=== PATIENT | male | born 1990 | race African-American/Black ===

== ENCOUNTER 2021-12-01 16:22 | Emergency (ER) | payer SELFPAY ==
[~2021-12-01] VITALS: Ht 170.2 cm; Wt 79.4 kg
[2021-12-01 17:35] VITALS: BP 112/68
[2021-12-01] MEDS ORDERED: NAPR500T31 PO (17:58)
[2021-12-01] MEDS ORDERED: CEPH500C PO (17:58)
[2021-12-01] MEDS ORDERED: TETANUS-DIPTH-ACEL PERTUSSIS 0.5ML SYR Tdap IM ONE (18:15)
== END 2021-12-01 18:31 | disposition home or self-care (01) ==
LOC: ER 16:22
DX: S41.112A Laceration without foreign body of left upper arm, initial encounter (principal); Y08.89XA Assault by other specified means, initial encounter; Y93.89 Activity, other specified; Y92.89 Other specified places as the place of occurrence of the external cause; Y99.8 Other external cause status
CPT/HCPCS: 12001; 90471; 90715

== ENCOUNTER 2021-12-08 08:08 | Emergency (ER) | payer OTHER ==
[~2021-12-08] VITALS: Ht 170.2 cm; Wt 77.1 kg
[~2021-12-08 08:08] MED LIST: CEPH500C PO; NAPR500T31 PO
[2021-12-08 08:09] VITALS: BP 126/81
== END 2021-12-08 09:00 | disposition home or self-care (01) ==
LOC: ER 08:08
DX: S41.112D Laceration without foreign body of left upper arm, subsequent encounter (principal); X58.XXXD Exposure to other specified factors, subsequent encounter

== ENCOUNTER 2021-12-15 07:03 | Emergency (ER) | payer OTHER ==
[2021-12-15 07:40] VITALS: BP 124/84
== END 2021-12-15 07:47 | disposition home or self-care (01) ==
LOC: ER 07:03
DX: S41.112D Laceration without foreign body of left upper arm, subsequent encounter (principal); W22.8XXD Striking against or struck by other objects, subsequent encounter